=== PATIENT | female | born 1990 | race Caucasian/White ===

== ENCOUNTER 2016-11-25 10:54 | Emergency (ER) | payer MEDICAID ==
[~2016-11-25] VITALS: Ht 152.4 cm; Wt 47.0 kg
[~2016-11-25 10:54] MED LIST: ACET325T33 PO; CIPR500T4 PO; FERR256T PO; PREN-14 PO; PREN-39 PO
[2016-11-25 11:00] VITALS: Ht 152.4 cm; Wt 47.0 kg
[2016-11-25] MEDS ORDERED: KETOROLAC 30 MG INJ IM STA (11:22)
[2016-11-25] MEDS ORDERED: morphine 10 MG INJ IM ONE (11:30)
[2016-11-25] MEDS ORDERED: METOCLOPRAMIDE 10 MG INJ IM ONE (11:30)
[2016-11-25] MEDS ORDERED: SUMA25TA3 PO (12:18)
--- NOTE | 2016-11-25 12:27 | ERA ---
ER Documentation Chief Complaint Date/Time DATE: 11/25/16 TIME: 12:23 Chief Complaint SOTOMAYOR INTERMITTENT X 1 MOS HPI Female with a chief complaint of headache that is intermittent 1-2 months. Patient has taken Excedrin Migraine and aspirin without relief. Patient describes color changes and right eye vision 30 minutes to an hour prior to onset of left-sided headaches. No fever, neck pain, abdominal pain, change in hearing, altered mental status or change in behavior. Patient has no other complaints and describes no other associated manifestations. Nursing notes have been reviewed and are consistent with history given. ROS All systems reviewed and are negative except as per history of present illness. Medications Home Meds Active Scripts Sumatriptan Succinate* (Sumatriptan Succinate*) 25 Mg Tablet, 25 MG PO BID Y for MIGRAINE HEADACHE for 7 Days, TAB May repeat after 2 hours if needed; MAX 200 mg/24 hours Prov:LITO YOUNG PA-C 11/25/16 Ciprofloxacin Hcl* (Ciprofloxacin Hcl*) 500 Mg Tablet, 500 MG PO BID for 7 Days , TAB Prov:MYLA CRAWLEY 10/14/14 Acetaminophen* (Tylenol*) 325 Mg Tablet, 2 TAB PO Q8 Y for PAIN AND OR ELEVATED TEMP, #20 TAB Prov:MYLA CRAWLEY. 10/14/14 Reported Medications Vit/Iron Fumarate/Fa ( PLUS TABLET) 1 Each Tablet, 1 EACH PO DAILY, #1 12/26/12 Ferrous Gluconate (Iron) 256 Mg Tablet, 256 MG PO DAILY 12/26/12 Vits W-Ca,Fe,Fa(<1MG) ( Vitamins) 1 Tab Tablet, 1 TAB PO DAILY 12/26/12 Allergies Allergies: Coded Allergies: No Known Allergies (Verified Allergy, Unknown, 12/26/12) PMhx/Soc History of Surgery: No Anesthesia Reaction: No Hx Neurological Disorder: No Hx Respiratory Disorders: No Hx Cardiac Disorders: No Hx Psychiatric Problems: No Hx Miscellaneous Medical Probl: Yes (migraines) Hx Alcohol Use: No Hx Substance Use: No Hx Tobacco Use: No Physical Exam Vitals Vital Signs Date Time Temp Pulse Resp B/P Pulse Ox O2 Delivery O2 Flow Rate FiO2 11/25/16 11:00 98.1 82 18 118/72 99 Physical Exam Const: Healthy-appearing. Well-nourished. Well-developed. No acute distress. Head: Normocephalic, Atraumatic. Eyes: Non-injected; No discharge or foreign body. Ophthalmoscope exam unremarkable. EOMI and JAVIER bilaterally. No nystagmus. Neur: Awake, alert and oriented x3. Neurovascularly intact bilaterally. Psych: Normal Mood and Affect. Ears: Normal External Ears, EACs clear, TM normal bilaterally without erythema. Nose: Normal external nose; no discharge, septal deviation, or sinus tenderness. Oral: No oral edema visualized. Mucous membranes moist and pink. Neck: No cervical lymphadenopathy, masses or goiter palpated. Trachea midline. Full range of motion. Supple ~ No meningismus. Negative kernings and brudnizkis signs. Pulm: Good air movement in upper and lower respiratory tracts. No dyspnea, stridor, tripoding or drooling. Clear to auscultation bilaterally. Cardio: Regular rate and rhythm; No murmurs, gallops or rubs auscultated. No JVD grossly observed. Radial and posterior tibial pulses 2+ bilaterally. No cyanosis. Capillary refill less than 2 seconds. Abd: Soft, non tender, non distended. No guarding, masses. Normal bowel sounds. No McBurney's point tenderness. MS: Normal motor strength, normal tone with gross examination. Skin: No petechiae or rashes. No ulcer, induration, jaundice. Good turgor. Back: No midline, flank or CVA tenderness. Ext: No edema or palpable cord. Normal movement of all extremities grossly observed. Results 24 hrs Current Medications Medications (Trade) Dose Ordered Sig/Tony Route PRN Reason Start Time Stop Time Status Last Admin Dose Admin Metoclopramide HCl (Reglan) 10 mg ONCE ONCE IM 11/25/16 11:30 11/25/16 11:31 DC 11/25/16 11:35 Morphine Sulfate (morphine) 3 mg ONCE ONCE IM 11/25/16 11:30 11/25/16 11:31 DC 11/25/16 11:36 Ketorolac Tromethamine (Toradol) 30 mg ONCE STAT IM 11/25/16 11:22 11/25/16 11:26 DC 11/25/16 11:36 Procedures/MDM Patient was worked up and evaluated for headache as described in the history and physical examination. ED treatment consisted of 3 mg morphine IM, Reglan 10 mg IM and Toradol 30 mg IM. There are no red flags to support brain CT evaluation. The current most likely diagnosis is tension-type headache versus migraine. Patient will be discharged with sumatriptan. At this time, I have little suspicion for subarachnoid hemorrhage or other intracranial bleeds, meningitis, temporal arteritis, glaucoma, hypertensive urgency/emergency, cerebral ischemia, arterial dissection, retinal detachment, brain abscess/tumor, pain secondary to trauma, septicemia, or other intracranial bleeds. I have spoke with the patient regarding their condition and future management. They have verbally responded that they understand their status and treatment plan. The patients vitals are stable, and their current condition is appropriate for discharge. The patient will be given discharge instructions with return precautions. Departure Diagnosis: Primary Impression: Migraine Qualified Code: G43.109 - Migraine with aura and without status migrainosus, not intractable Condition: Stable Patient Instructions: Headache, Migraine (Classical) [facility] Usted se sotomayor hecho un examen mdico de control que le indica que no est en paulo condicin que requiera tratamiento urgente en el Departamento de Emergencia. Un estudio ms profundo y el tratamiento de granger condicin pueden esperar sin ningn riesgo hasta que usted sea atendida/o en el consultorio de granger mdico o paulo cl hollie. Es responsabilidad suya arreglar paulo tomasz para el seguimiento del melvin. MANEJO DE CONDICIONES NO URGENTES EN EL FUTURO 1) Si usted tiene un mdico de atencin primaria: Usted debera llamar a granger mdico de atencin primaria antes de venir al departamento de emergencia. Despus de las horas de consultorio, granger doctor o granger asociado/a est disponible por telfono. El mdico o enfermero de sivan en el servicio telefnico puede asesorarle por crissy medio para atender el problema, o melvin contrario se puede programar paulo tomasz. 2) Si usted no tiene un mdico de atencin primaria: Llame al mdico o clnica de referencia que aparece abajo ousmane las horas de consultorio para hacer paulo tomasz para que le vean. CLINICAS: [place] [id number] [phone] [facility] [place] [phone] [facility]. [place] [address] [phone] [place] [place] [address] [phone] [facility]. [place] [address] [phone] [facility] [phone] [facility] YOU HAVE RECEIVED A MEDICAL SCREENING EXAM AND THE RESULTS INDICATE THAT YOU DO NOT HAVE A CONDITION THAT REQUIRES URGENT TREATMENT IN THE EMERGENCY DEPARTMENT. FURTHER EVALUATION AND TREATMENT OF YOUR CONDITION CAN WAIT UNTIL YOU ARE SEEN IN YOUR DOCTORS OFFICE WITHIN THE NEXT 1-2 DAYS. IT IS YOUR RESPONSIBILITY TO MAKE AN APPOINTMENT FOR FOLOW-UP CARE. IF YOU HAVE A PRIMARY DOCTOR --you should call your primary doctor and schedule an appointment IF YOU DO NOT HAVE A PRIMARY DOCTOR YOU CAN CALL OUR PHYSICIAN REFERRAL HOTLINE AT IF YOU CAN NOT AFFORD TO SEE A PHYSICIAN YOU CAN CHOSE FROM THE FOLLOWING [facility] [phone] [facility]. [facility] [phone] [facility]. [facility] [address] [facility]. [facility] [address] [facility]. [facility] [address] [facility]. [facility] [address] [place] Additional Instructions: Follow up with your PCP within the next 1-3 days for a more thorough evaluation and a possible referral to a specialist. Return the the emergency department immediately if symptoms worsen or change. If you have any questions regarding medications, ask your pharmacist or us before you leave. If any adverse reactions occur while taking your medications, discontinue the treatment and return to the emergency department immediately. Take your medications as directed, and complete the entire course of treatment. LITO YOUNG PA-C Nov 25, 2016 12:27
== END 2016-11-25 12:52 | disposition home or self-care (01) ==
LOC: FTE 10:54
DX: G43.109 Migraine with aura, not intractable, without status migrainosus (principal)
CPT/HCPCS: 96372; J1885; J2270; J2765; Z7502

== ENCOUNTER 2017-12-10 17:51 | Emergency (ER) | END 2017-12-10 22:40 | disposition home or self-care (01) ==

== ENCOUNTER 2017-12-18 09:24 | Emergency (ER) | END 2017-12-18 10:15 | disposition home or self-care (01) ==